=== PATIENT | male | born 1980 | race Caucasian/White ===

== ENCOUNTER 2019-11-20 09:26 | Outpatient (REF) | payer MEDICAID, SELFPAY ==
[2019-11-20 19:52] LABS: HCT 47.9 % (40.0-50.0); HGB 15.5 g/dL (13.5-17.5); MCH 30.7 pg (27.0-33.0); MCHC 32.4 % (32.0-36.0); MCV 94.9 fL (80-95); MPV 11.6 fL (8.0-11.0); Platelet Count 192 10^3/uL (130-400); RBC 5.05 10^6/uL (4.36-5.78); RDW 12.4 % (11.8-14.1); RDW-SD 42.8 fL; WBC 5.12 10^3/uL (4.4-10.8)
[2019-11-20 21:06] LABS: Anion Gap 6.1 mmol/L (3-11); BUN 14 mg/dL (7-18); CO2 31.9 mmol/L (21.0-32.0); CREATININE 1.02 mg/dL (0.70-1.30); Calcium 9.3 mg/dL (8.5-10.1); Calculated LDL 113 mg/dL (<100); Chloride 104 mmol/L (98-107); Cholesterol 185 mg/dL (<200); Glucose 93 mg/dL (74-106); HDL Cholesterol 60 mg/dL (40-60); Potassium 4.5 mmol/L (3.5-5.1); Sodium 142 mmol/L (136-145); TSH 1.65 uIU/mL (0.36-3.74); Triglyceride 64 mg/dL (<150)
== END 2019-11-20 09:46 ==
LOC: NCHCN 09:26
PROVIDERS: Visit Provider Physician Assistant
DX: R63.4 Abnormal weight loss (principal)
CPT/HCPCS: 80048; 80061; 85027; 84439; 84443

== ENCOUNTER 2021-05-17 04:08 | Outpatient (CLI) | payer MEDICAID, SELFPAY ==
[2021-05-17 12:37] LABS: Source Nasal/Nares
[2021-05-17 15:17] LABS: COVID-19 PCR Negative (Negative)
== END 2021-05-17 04:09 | disposition home or self-care (01) ==
LOC: LBO 04:08
PROVIDERS: PCP Physician Assistant; Visit Provider Surgery
DX: Z20.822 Contact with and (suspected) exposure to COVID-19 (principal); Z01.818 Encounter for other preprocedural examination
CPT/HCPCS: 87635

== ENCOUNTER 2021-05-18 05:59 | Day surgery (SDC) | payer MEDICAID, SELFPAY ==
[2021-05-18 06:12] VITALS: BP 115/81; PULSE 59; RESP 16; TEMP 36.7; O2SAT 99
--- NOTE | 2021-05-18 06:35 | W.ANESPRE ---
General Info Date of Service Date Performed: 05/18/21 Height: 6 ft 1 in Weight: 80.8 kg Body Mass Index (BMI): 23.5 Surgical Procedure: Operation Date: 05/18/21 07:40 Proposed Procedure Side Surgeon p Excision Mass Facial Right Marisabel Cesar, Meds Allergies and Home Medications Allergies Allergy/AdvReac Type Severity Reaction Status Date / Time No Known Drug Allergies Allergy Verified 05/18/21 06:11 Home Medication Medication Instructions Recorded sildenafil (pulm.hypertension) 20 100 mg PO PRN tab 04/22/21 mg tablet valacyclovir 1 gram tablet 2,000 mg PO Q12H tab 04/22/21 Current Visit Medications: Current Medications Generic Name Dose Route Start Last Admin Trade Name Freq PRN Reason Stop Dose Admin Acetaminophen 1,000 mg 05/18/21 06:00 Acetaminophen 500 Mg Tab PO 06/16/21 23:59 PREOP PEDRO Gabapentin 600 mg 05/18/21 06:00 Gabapentin 300 Mg Cap PO 06/16/21 23:59 PREOP PEDRO Ondansetron HCl 4 mg/ Sodium 52 mls @ 200 mls/hr 05/17/21 10:56 Chloride IVPB Q6H PRN PRN Ringer's Solution 1,000 mls @ 80 mls/hr 05/18/21 06:00 IV 06/16/21 23:59 INFUSION [facility] IV Miscellaneous Supplies 1 each 05/18/21 06:00 Iv Access IV 06/16/21 23:59 DIRECTED PEDRO Sodium Chloride 0 ml 05/18/21 06:00 Normal Saline Flush 10 Ml Syr IV 06/16/21 23:59 PRN PRN Sodium Chloride 0 ml 05/18/21 06:00 Normal Saline 10 Ml Vial IJ 06/16/21 23:59 DIRECTED PRN Sterile Water 0 ml 05/18/21 06:00 Water,Injection,Sterile 10 Ml Vial IJ 06/16/21 23:59 DIRECTED PRN Tramadol HCl 50 mg 05/17/21 10:56 Tramadol 50 Mg Tab PO Q6H PRN PRN Pain PFSH Active Problems Active Problems: Problem Status Onset Code Skin lesion L98.9 Medical History Medical History Amputation of finger tip Anxiety Erectile dysfunction Weight loss Surgical History Surgical History (Reviewed 05/18/21 @ 06:11 by Aron Hussein H/O adenoidectomy [place] teeth extracted Tobacco Smoking/Tobacco Use Status: Current-Occasional Tobacco Type: cigarettes Alcohol Alcohol Intake: current Alcohol intake frequency: holidays/special occasions only Substance Use Substance use: Occasionally Substance use type: marijuana Vital Signs and Lab Results Vital Signs Most Recent Vital Signs in EMR: Most Recent Vital Signs Temp Pulse Resp BP Pulse Ox 36.7 C 59 L 16 115/81 99 05/18/21 06:12 05/18/21 06:12 05/18/21 06:12 05/18/21 06:12 05/18/21 06:12 Lab Results Blood Type / Crossmatch: No Data to Display Complete Blood Count: No Data to Display Complete Metabolic Panel: No Data to Display Liver Function Panel: No Data to Display Coagulation Panel: No Data to Display Cardiac Panel: No Data to Display Arterial Blood Gas: No Data to Display Venous Blood Gas: No Data to Display Pancreas Panel: No Data to Display Thyroid Panel: No Data to Display Infectious Disease: Coronavirus (COVID-19)(PCR) Negative (Negative) 05/17/21 11:22 05/17/21 Coronavirus 2019 Source Nasal/Nares 05/17/21 11:22 05/17/21 Blood Cultures: No Data to Display Toxicology Panel: No Data to Display Anesthesia Assessment and Plan Anesthesia History Personal History: No History of Anesthesia Complications Family History: No Family History of Anesthesia Complications Exercise Tolerance Exercise Tolerance: Metabolic Equivalents>4 Pertinent Negatives Pertinent Negatives: No Symptoms of GERD, No Major Cardiovascular Symptoms or Complaints, No Major Pulmonary Symptoms or Complaints and No History of CVA/TIA Cardiac & Pulmonary Exam Cardiac Exam: Normal S1/S2 Heart Sounds Pulmonary Exam: Clear Bilateral Breath Sounds Implantable Cardiac Device Does patient have a Pacemaker or an ICD?: No Airway Exam Known Difficult Airway: No Mallampati Class: 1 Mouth Opening: Normal (> 3cm) Thyromental Distance: Greater than 3 cm Facial Hair: Full [place] Range of Motion: Full ROM Neck Circumference: Normal Teeth Condition: Normal Dentition ASA Classification ASA Score: ASA 2 Emergency Case?: No NPO Status NPO Status: NPO Clears >2 hours, Solids >8 hours Anesthesia Plan Resuscitation Status: Full Code Anesthesia Technique: General Anesthesia Airway Planned: LMA Monitors Used: Standard Monitors
[2021-05-18] MEDS: Acetaminophen 500 MG TAB 1000 MG PO (06:36)
[2021-05-18] MEDS: Gabapentin 300 MG CAP 600 MG PO (06:36)
[2021-05-18] MEDS: Lactated Ringers 1,000 ML 80 ML IV (06:45)
[2021-05-18 07:07] VITALS: BMI 23.5
[2021-05-18] MEDS: Lidocaine 1% Multi-Dose 50 ML VIAL (08:00)
[2021-05-18] MEDS: Bupivacaine 0.25% Pres-Free 10 ML VIAL (08:00)
--- NOTE | 2021-05-18 08:00 | SKI_PTH ---
PATIENT: John Aviles LOC: [facility] U#:[id number] AGE/SX: 40/M ROOM: RE05/18/[address]: Marisabel Cesar : 1980 BED: DIS: 05/18/2021 SPEC #: [id number] RECD: 05/18/21 12:40 STATUS: NICK REQ #: [id number] JOHN: 05/18/21 08:[address]: Marisabel Cesar DEPT: Surgical Specimen RECD BY: Kell Patel ENTERED: 05/18/21 12:41 SP TYPE: OLI TEE DR: Mateus Mohamud Tissues: 1 - SKIN BIOPSY(SHAVE/PUNCH) Procedures: GROSS AND MICRO LEVEL 4 Comments: [id number]
[2021-05-18] MEDS: Bacitracin 1 PACKET (08:12)
--- NOTE | 2021-05-18 08:19 | ROE_ITS ---
Date of service: 05/18/21 Time of Service: 08:19 Operative Note Operative Note DATE OF PROCEDURE: 05/18/21 PRE-OP DIAGNOSIS: mass right cheek POST-OP DIAGNOSIS: other (lipoma) PROCEDURE: excision SURGEON: Marisabel Cesar PUBLIC SERVICE OFFICER: Isabel Uribe ANESTHESIA TYPE: Local By Surgeon and MAC Refer to Anesthesia Record ESTIMATED BLOOD LOSS: 7 COMPLICATIONS: None Patient was transported to: same day Patient's condition: stable Procedure Description: Patient is here today for a 2 inch mass on his right cheek that he would like to have removed. It has never been infected. He denies any trauma. he denies any pain. Risks of removal including bleeding, infections, scarring, recurrence. Patient understands there will be a scar. There is a risk of recurrence and from complications of anesthesia. Patient has severe anxiety and needs to be done with sedation. informed consent is obtained explaining risks and benefits and alternatives. Patient is brought to the operative room suite and placed in the supine position. Anesthesia is administered per the department of anesthesia. Patient is prepped and draped in the usual sterile fashion using a Betadine scrub solution. The lesion was marked in preop. Timeout is performed. #15 blade is used to make a 1 cm incision over the mass. The mass is dissected out. Electrocautery is used to provide hemostasis. Mass was removed in its entirety. It does appear to be a lipoma. It is 2 x 2 inches. Deep space closed space is closed with 4-0 Vicryl. Skin was closed with 4-0 nylon. Sterile dressings are applied. Patient tolerated procedure well and transferred to same-day surgery in stable condition. He was given instructions in wound care, activity, warning signs, and will follow-up in 7 to 10 days for suture removal. Ice and Tylenol or ibuprofen for pain control.
--- NOTE | 2021-05-18 08:19 | W.PM.DSUDISC ---
Discharge Plan Disposition Patient Disposition: HOME Condition: Good Discharge Details Reason For Visit: lesion removal Attending Provider: Marisabel Cesar Primary Care Provider: Mateus Mohamud Home Meds and New Rx's Prescriptions: No Action valacyclovir 1 gram tablet 2,000 mg PO Q12H 0RF sildenafil (pulm.hypertension) 20 mg tablet 100 mg PO PRN 0RF Rx Instructions: take 1-5 tablets by mouth as directed as needed, take 30 minutes prior to intercourse. Discharge Instructions Additional Instructions: Wound Care Instruction Pain Control Use ice!? Ice keeps the swelling down and swelling is what causes pain.? Never apply ice directly to the skin.? Wrap it in a towel or cloth.? Apply ice 20 minutes on and 20 minutes off for pain control.? Use as needed. Take Tylenol 500 mg by mouth with food every 4 hours as needed for pain. Or ibuprofen 600 mg by mouth with food every 6 hours as needed for pain.? Do not take Tylenol if you have a history of heavy drinking, hepatitis C or liver problems.? Do not take ibuprofen if you have a history of stomach ulcers/problems, bleeding problem or kidney issues. ? Always wash your hands before touching your incision. ? Keep the incision clean, dry, and out of water, keep the incision out of water. ? Do not to pick at the scabs. Scabs help protect the wound. ? You can take a shower in 24 hours and wash the incision with soap and water. Pat dry/don?t scrub. It?s OK to wash around the incision. But don?t spray water directly on it. ? Pat stitches dry if they get wet. Don't rub. ? Check the incision site daily for pain, redness, drainage, swelling, or separation of the incision edges. ? Make sure any clothing that touches the incision is loose-fitting. This will prevent rubbing. If the incision is on the head, keep your child from wearing caps or other head coverings. These may rub against the incision. As your incision heals, the skin may appear pink or red. It may also feel slightly bumpy or raised. This is called a healing ridge. Over time, the color should fade and the raised skin will become less noticeable. ? When to seek medical care Call your healthcare provider right away if you have any of these: ? More pain, redness, swelling, bleeding, or foul-smelling discharge around the incision area ? Fever of 101?F (38.3?C) or higher, or as directed by your child's healthcare provider ? Shaking chills ? Vomiting or nausea that doesn?t go away ? Numbness, coldness, or tingling around the incision area, or changes in skin color ? Opening of the sutures or wound -Stitches or golden that come apart or fall out or surgical tape falls off before 7 days, or as directed by your healthcare provider -F/u Angeline HEREDIA. in 7 days ? ?[facility]: [phone] ? Activity:: rest for the nexk 24hrs. no strenuous activity for next 72hrs Remove Dressings/Wound Care:: 24 hours Shower/Bathe:: 24 hours Diet:: As Tolerated Discharge Orders Discharge Orders: Discharge Order (Routine); Ordered 05/17/21 Ordered By: Marisabel Cesar
[2021-05-18 08:20] VITALS: BP 91/55; PULSE 63; RESP 16; TEMP 36.5; O2SAT 96
[2021-05-18] MEDS: Ketorolac 15 MG/ML VIAL IVP (08:34)
--- NOTE | 2021-05-18 08:44 | W.ANESPOSTOP ---
Postoperative Evaluation Date, Time and Location Date Performed: 05/18/21 Time Performed: 08:44 Patient Location: Day Surgery Unit Vital Signs Most Recent Imported Vital Signs: Most Recent Vital Signs Temp Pulse Resp BP Pulse Ox 36.5 C 63 16 91/55 L 96 05/18/21 08:20 05/18/21 08:20 05/18/21 08:20 05/18/21 08:20 05/18/21 08:20 Pain Score Most Recent Pain Score: Most Recent Pain Score Pain Level 8 05/18/21 08:20 Assessment Mental Status: Awake (Alert & Oriented to Patient Baseline) Airway and Respiratory Function: Patent airway with normal (patient baseline) respiratory exam Cardiovascular Function: Hemodynamically Stable Hydration Status: Adequately Hydrated Nausea & Vomiting: No Nausea or Vomiting Pain: Pain is tolerable per patient Peripheral Nerve Block: Patient did not receive a nerve block
[2021-05-18 08:51] VITALS: BP 105/74; PULSE 58; RESP 16; TEMP 36.6; O2SAT 96
== END 2021-05-18 09:38 | disposition home or self-care (01) ==
PROVIDERS: PCP Physician Assistant; Visit Provider Surgery
PROC: (CPT 11446; principal; 2021-05-18 07:30)
DX: D17.0 Benign lipomatous neoplasm of skin and subcutaneous tissue of head, face and neck (principal); F41.9 Anxiety disorder, unspecified; F17.210 Nicotine dependence, cigarettes, uncomplicated
CPT/HCPCS: 11446; 12053; 88305; J1100; J1885; J2250; J2405

== ENCOUNTER 2021-06-30 15:08 | Outpatient (REF) | payer MEDICAID, SELFPAY ==
[2021-07-01 14:30] LABS: COVID-19 RT-PCR UVMMC Result Negative (Negative)
== END 2021-06-30 15:09 | disposition home or self-care (01) ==
LOC: LBN 15:08
PROVIDERS: PCP Physician Assistant; Visit Provider Physician Assistant Medical
DX: J02.9 Acute pharyngitis, unspecified (principal); Z20.822 Contact with and (suspected) exposure to COVID-19
CPT/HCPCS: U0003; 87070

== ENCOUNTER 2024-11-29 07:35 | Day surgery (SDC) | payer MEDICAID, SELFPAY ==
--- NOTE | 2024-11-28 20:06 | W.PM.DSUDISC ---
Date of service: 11/29/24 Discharge Plan Disposition Patient Disposition: Home Condition: Good Discharge Details Reason For Visit: screening colonoscopy Attending Provider: George Terrazas Primary Care Provider: Mateus Mohamud Home Meds and New Rx's Prescriptions: Continued dextroamphetamine-amphetamine [Adderall XR] 15 mg capsule,extended release 24hr 15 mg PO DAILY valacyclovir 1 gram tablet 2,000 mg PO Q12H Discontinued bisacodyl [Dulcolax (bisacodyl)] 5 mg tablet,delayed release (DR/EC) 5 mg PO ONCE Qty: 4 0RF Rx Instructions: Take per colonoscopy instructions provided by ordering providers office polyethylene glycol 3350 17 gram/dose powder 17 g PO ONCE Qty: 238 0RF Rx Instructions: Take per colonoscopy instructions provided by ordering providers office No Action sildenafil [Viagra] 25 mg tablet 25 mg PO DAILY PRN Rx Instructions: administer 30 minutes to 4 hours before activity Discharge Instructions Additional Instructions: John, was very nice to meet you today, and hope you feel well after the procedure. Things went very smoothly. Your prep was excellent and I could see everything fine. I saw no signs of tumors, polyps, or any other worrisome problems. With a negative colonoscopy today, recommended 10-year interval for your next screening. 1. If tolerated, consume a soft, low fiber diet for 1-2 days. 2[address] Do not drive, drink alcohol, operate machinery, make critical decisions, or do activities that require coordination or balance for 24 hours. 3. Because air was put into your colon during the procedure, expelling air from your rectum (passing gas or farting) is normal. 4. You may not have a bowel movement for 1-3 days because of the colonoscopy prep. This is normal. 5. Go directly to the emergency room if you notice any of the following: Develop chills (warm to touch), or if you have a thermometer and your temperature is above 101 Difficulty breathing or difficultly swallowing Persistent vomiting Severe abdominal pain, other than gas cramps Severe chest pain Black, tarry stools Any bleeding ? exceeding one tablespoon 6. Call your physician if the site where your intravenous was started becomes red, swollen, painful, and warm to touch. 7. Your physician has reviewed your pre-procedure medications. Please continue to take those medications as previously ordered. You will be given specific information/education regarding any changes to your medications before leaving. Activity:: Activity as Tolerated Diet:: As Tolerated Discharge Orders Discharge Orders: Discharge Order (Routine); Ordered 11/28/24 Ordered By: George Terrazas DS: Diagnosis Discharge Diagnosis (1) Encounter for screening colonoscopy: Status: Acute Asessment and Plan: Negative screening colonoscopy; 10-year follow-up
--- NOTE | 2024-11-28 20:08 | W.COLOREPORT ---
Date of service: 11/29/24 Time of Service: 09:56 Colonoscopy Report Date of procedure: 11/29/24 Pre-op diagnosis general: screening colonoscopy Post-op diagnosis procedure note: other (Negative screening colonoscopy) Procedure: colonoscopy Surgeon: George Terrazas Anesthesia Type: General:No Airway Estimated blood loss (mL): 0 Pathology: none sent Complications: None Disposition: same day Indications: John is a 44 year old man who needs a screening colonoscopy Prep: Miralax/Dulcolax Procedure Start Time: 09:34 Procedure End Time: 09:49 Retraction Time: 6 Findings: Negative screening colonoscopy Procedure Description: After the induction of anesthesia, and with the patient in left lateral decubitus position, I began by performing an external anorectal exam.? Perineum and skin were normal, as was the anal verge.? There was no evidence of external hemorrhoids.? Next, I performed a digital rectal exam.? I did not appreciate any abnormal findings.? Next, I advanced a colonoscope into the rectal vault.? I performed retroflexion.? This was normal.? Using irrigation, I then advanced the colonoscope beyond the rectal folds and into the sigmoid colon before advancing towards the cecum.? The quality of the prep was excellent.? The scope was noted to be in the cecum by identification of the ileocecal valve and appendiceal orifice.? I then began withdrawing the colonoscope using repeated irrigation as necessary for full evaluation of the colonic mucosa. ?Once the scope was withdrawn to the level of the rectum, great care was taken to examine portions of the rectal folds.? I saw no signs of tumors, polyps, or any other pathology. Finally, the scope was withdrawn and the patient was brought to the same-day surgery recovery unit as the anesthetic wore off. ?The findings and instructions were shared with the patient prior to discharge. [place] Bowel Prep [place] Bowel Prep Right Colon: 3 Left Colon: 3 Transverse Colon: 3 Total Score: 9
[2024-11-29 07:30] VITALS: BP 122/77; PULSE 60; RESP 16; TEMP 36.3; O2SAT 99
[2024-11-29] MEDS: Lactated Ringers 1,000 ML 80 ML IV (08:15)
--- NOTE | 2024-11-29 08:46 | W.ANESPRE ---
General Info Date of Service Date Performed: 11/29/24 Height: 6 ft Weight: 79.5 kg Body Mass Index (BMI): 23.8 Surgical Procedure: Operation Date: 11/29/24 09:05 Proposed Procedure Side Surgeon salo Terrazas MD Meds Allergies and Home Medications Allergies Allergy/AdvReac Type Severity Reaction Status Date / Time No Known Drug Allergies Allergy Unknown Verified 11/29/24 08:00 Home Medication ?Medication ?Instructions ?Recorded valacyclovir 1 gram tablet 2,000 mg PO Q12H 04/22/21 dextroamphetamine-amphetamine ER 15 mg PO DAILY 05/11/22 15 mg 24hr capsule,extend release (Adderall XR) sildenafil 25 mg tablet (Viagra) 25 mg PO DAILY PRN 11/29/24 Current Visit Medications: Current Medications Generic Name Dose Route Start Last Admin Trade Name Freq PRN Reason Stop Dose Admin Ringer's Solution 1,000 mls @ 80 mls/hr 11/29/24 06:00 IV 11/29/24 23:59 INFUSION PEDRO IV Miscellaneous Supplies 1 each 11/29/24 06:00 Iv Access IV 11/29/24 23:59 DIRECTED PEDRO Sodium Chloride 0 ml 11/29/24 06:00 Normal Saline Flush 10 Ml Syr IV 11/29/24 23:59 PRN PRN Sodium Chloride 0 ml 11/29/24 06:00 Normal Saline 10 Ml Vial IJ 11/29/24 23:59 DIRECTED PRN Sterile Water 0 ml 11/29/24 06:00 Water,Injection,Sterile 10 Ml Vial IJ 11/29/24 23:59 DIRECTED PRN PFSH Active Problems Active Problems: Problem Status Onset Code Encounter for screening colonoscopy Acute Z12.11 Skin lesion Acute L98.9 Medical History Medical History Attention deficit hyperactivity disorder Amputation of finger tip Anxiety Weight loss Erectile dysfunction Surgical History Surgical History Hx of vasectomy H/O local excision of skin lesion (~05/18/21) Face, right cheek H/O adenoidectomy [place] teeth extracted Tobacco Smoking/Tobacco Use Status: Current-Occasional Tobacco Type: cigarettes Alcohol Alcohol Intake: current Alcohol intake frequency: holidays/special occasions only Substance Use Substance use: Daily Substance use type: marijuana Vital Signs and Lab Results Vital Signs Most Recent Vital Signs in EMR: Most Recent Vital Signs Temp Pulse Resp BP Pulse Ox 36.3 C L 60 16 122/77 99 11/29/24 07:30 11/29/24 07:30 11/29/24 07:30 11/29/24 07:30 11/29/24 07:30 Anesthesia Assessment and Plan Anesthesia History Personal History: No History of Anesthesia Complications Family History: No Family History of Anesthesia Complications Exercise Tolerance Exercise Tolerance: Metabolic Equivalents>4 Pertinent Negatives Pertinent Negatives: No Symptoms of GERD Cardiac & Pulmonary Exam Cardiac Exam: Normal S1/S2 Heart Sounds Pulmonary Exam: Clear Bilateral Breath Sounds Implantable Cardiac Device Does patient have a Pacemaker or an ICD?: No Airway Exam Known Difficult Airway: No Mallampati Class: 1 Mouth Opening: Normal (> 3cm) Thyromental Distance: Greater than 3 cm Neck Range of Motion: Full ROM Neck Circumference: Normal Teeth Condition: Normal Dentition ASA Classification ASA Score: ASA 2 Emergency Case?: No NPO Status NPO Status: NPO Clears >2 hours, Solids >8 hours Anesthesia Plan Resuscitation Status: Full Code Anesthesia Technique: General Anesthesia Airway Planned: Natural Airway Monitors Used: Standard Monitors
[2024-11-29 08:52] VITALS: BMI 23.8
[2024-11-29 09:55] VITALS: BP 119/83; PULSE 76; RESP 16; TEMP 36.3; O2SAT 96
--- NOTE | 2024-11-29 10:19 | W.ANESPOSTOP ---
Postoperative Evaluation Date, Time and Location Date Performed: 11/29/24 Time Performed: 10:08 Patient Location: Day Surgery Unit Vital Signs Most Recent Imported Vital Signs: Most Recent Vital Signs Temp Pulse Resp BP Pulse Ox 36.3 C L 76 16 119/83 96 11/29/24 09:55 11/29/24 09:55 11/29/24 09:55 11/29/24 09:55 11/29/24 09:55 Pain Score Most Recent Pain Score: Most Recent Pain Score Pain Level 0 11/29/24 09:55 Assessment Mental Status: Awake (Alert & Oriented to Patient Baseline) Airway and Respiratory Function: Patent airway with normal (patient baseline) respiratory exam Cardiovascular Function: Hemodynamically Stable Hydration Status: Adequately Hydrated Nausea & Vomiting: No Nausea or Vomiting Pain: Pt. Denies Any Pain Peripheral Nerve Block: Patient did not receive a nerve block
[2024-11-29 10:25] VITALS: BP 120/92; PULSE 68; RESP 16; TEMP 36.3; O2SAT 96
== END 2024-11-29 10:46 | disposition home or self-care (01) ==
LOC: SUR 07:35
PROVIDERS: PCP Physician Assistant; Visit Provider Surgery
PROC: 0DJD8ZZ Inspection of Lower Intestinal Tract, Via Natural or Artificial Opening Endoscopic (ICD-10-PCS; CPT 45378; principal; 2024-11-29 09:00)
DX: Z12.11 Encounter for screening for malignant neoplasm of colon (principal)
CPT/HCPCS: 45378; J2704